=== PATIENT | female | born 1955 | race American Indian/Alaskan Native ===

== ENCOUNTER 2018-12-02 00:42 | Emergency (ER) | payer MEDICAID, OTHER ==
[2018-12-02] MEDS ORDERED: TENORMIN PO ONE (01:06)
--- NOTE | 2018-12-02 01:11 | Emergency Department Report ---
ED Medical Clearance HPI - General Chief complaint: Medical Clearance Stated complaint: MED CLEARANCE Time Seen by Provider: 12/02/18 01:02 Source: patient, police Mode of arrival: Ambulatory Limitations: No Limitations - History of Present Illness Initial comments: Patient is a 63-year-old -[place] female who presents requesting medical clearance status post [facility] Police Department patient denies complaints at this time is no shortness of breath no nausea vomiting no diaphoresis no back pain no dizziness or lightheadedness patient does endorse she missed her medications today follows positive for HR: of 110, BP 159/92 patient does appear well and nontoxic nad. curent medications includ: metformin 100 mg po bid, atenolol 50 mg po bid, artovastatin 40mg po daily , and ASA 81 mg po daily , pcp , Dr Jonathan DELGADO Complaint: medical clearance request Onset/Timin -: hour(s) Reason for Medical Clearance: medical condition, other (htn, tachycardia chronic ) Place: home Alledged Intoxication: No (disease and newly) Compliant with Home Medications: No Traumatic Symptoms: denies traumatic injury Associated Symptoms: denies: chest pain, palpitations, diaphoresis, denies other symptoms, confusion, cough, nausea/vomiting, weakness Treatments Prior to Arrival: none Allergies/Adverse reactions: Allergies Allergy/AdvReac Type Severity Reaction Status Date / Time lisinopril Allergy Angioedema Verified 12/02/18 00:44 ED Review of Systems ROS: Stated complaint: MED CLEARANCE Other details as noted in HPI Constitutional: denies: chills, fever Eyes: denies: eye pain, eye discharge, vision change ENT: denies: ear pain, throat pain Respiratory: denies: cough, shortness of breath, wheezing Cardiovascular: denies: chest pain, palpitations, dyspnea on exertion, edema, syncope, paroxysmal nocturnal dyspnea Endocrine: no symptoms reported Gastrointestinal: denies: abdominal pain, nausea, vomiting, diarrhea Genitourinary: denies: urgency, dysuria, discharge Musculoskeletal: denies: back pain, joint swelling, arthralgia Skin: denies: rash, lesions Neurological: denies: headache, weakness, paresthesias Psychiatric: denies: anxiety, depression Hematological/Lymphatic: denies: easy bleeding, easy bruising ED Past Medical Hx - Past Medical History Previous Medical History?: Yes Hx Hypertension: Yes Hx Heart Attack/AMI: Yes (2 stents) Hx Diabetes: Yes Additional medical history: AFib, Anemia with 2 Blood transfusions - Surgical History Past Surgical History?: Yes Hx Coronary Stent: Yes (x 2) Additional Surgical History: Hemorrhoids - Social History Smoking Status: Current Every Day Smoker Substance Use Type: Alcohol ED Physical Exam - General Limitations: Other General appearance: alert, in no apparent distress - Head Head exam: Present: atraumatic, normocephalic - Eye Eye exam: Present: normal appearance, PERRL, EOMI Pupils: Present: normal accommodation - ENT ENT exam: Present: normal orophraynx, mucous membranes moist, TM's normal bilaterally, normal external ear exam - Neck Neck exam: Present: normal inspection, full ROM. Absent: tenderness, meningismus, lymphadenopathy, thyromegaly - Expanded Neck Exam Expanded Neck exam: Absent: tenderness, midline deformity, anterior neck swelling, thyroid mass, carotid bruit, tracheal deviation - Respiratory Respiratory exam: Present: normal lung sounds bilaterally. Absent: respiratory distress, wheezes, stridor, chest wall tenderness, prolonged expiratory - Cardiovascular Cardiovascular Exam: Present: regular rate, normal rhythm, normal heart sounds. Absent: systolic murmur, diastolic murmur, rubs, gallop, clicks, JVD ED Course Vital Signs 12/02/18 12/02/18 12/02/18 00:47 01:27 02:40 Temperature 98.5 F Pulse Rate 110 H 110 H 78 Respiratory 20 16 18 Rate Blood Pressure 159/92 162/93 Blood Pressure 162/93 141/77 [Right] O2 Sat by Pulse 97 98 98 Oximetry ED Medical Decision Making - Lab Data Result diagrams: 12/02/18 01:16 12/02/18 01:16 Labs 12/02/18 12/02/18 01:16 01:16 WBC 6.2 RBC 4.70 Hgb 11.5 Hct 33.3 MCV 71 L MCH 24 L MCHC 35 H RDW 18.9 H Plt Count 210 Lymph % (Auto) 35.1 H [place] % (Auto) 7.1 Eos % (Auto) 0.8 Baso % (Auto) 1.3 Lymph # 2.2 [place] # 0.4 Eos # 0.1 Baso # 0.1 Seg Neutrophils % 55.7 Seg Neutrophils # 3.5 Sodium 142 Potassium 4.4 Chloride 103.5 Carbon Dioxide 22 Anion Gap 21 BUN 6 L Creatinine 0.6 L Estimated GFR > 60 BUN/Creatinine Ratio 10 Glucose 177 H Calcium 9.7 Total Bilirubin 0.20 AST 23 ALT 20 Alkaline Phosphatase 74 Troponin T < 0.010 Total Protein 7.9 Albumin 4.4 Albumin/Globulin Ratio 1.3 Labs 12/02/18 12/02/18 12/02/18 01:16 01:16 02:53 WBC 6.2 RBC 4.70 Hgb 11.5 Hct 33.3 MCV 71 L MCH 24 L MCHC 35 H RDW 18.9 H Plt Count 210 Lymph % (Auto) 35.1 H [place] % (Auto) 7.1 Eos % (Auto) 0.8 Baso % (Auto) 1.3 Lymph # 2.2 [place] # 0.4 Eos # 0.1 Baso # 0.1 Seg Neutrophils % 55.7 Seg Neutrophils # 3.5 Sodium 142 Potassium 4.4 Chloride 103.5 Carbon Dioxide 22 Anion Gap 21 BUN 6 L Creatinine 0.6 L Estimated GFR > 60 BUN/Creatinine Ratio 10 Glucose 177 H Calcium 9.7 Total Bilirubin 0.20 AST 23 ALT 20 Alkaline Phosphatase 74 Troponin T < 0.010 < 0.010 Total Protein 7.9 Albumin 4.4 Albumin/Globulin Ratio 1.3 - EKG Data EKG shows normal: sinus rhythm, axis, intervals, QRS complexes, ST-T waves Rate: normal - EKG Data When compared to previous EKG there are: no significant change Interpretation: no acute changes, normal EKG, other EKG interp by ed attending NSTach with right BBB , No ST Elevated [place] , 12/02/18 01:57 - Radiology Data Radiology results: report reviewed, image reviewed Ordering Physician: TRISH MARTIN NP Date of Service: 12/02/18 Procedure(s): XR chest routine 2V Accession Number(s): [id number] cc: TRISH MARTIN NP Fluoro Time In Minutes: PROCEDURE: XR CHEST ROUTINE 2V TECHNIQUE: PA and lateral chest radiographs were obtained. HISTORY: sob COMPARISONS: None. FINDINGS: Heart: Normal. Mediastinum/Vessels: Normal. Lungs/Pleural space: Normal. Bony thorax: No acute osseous abnormality. IMPRESSION: Normal examination. This document is electronically signed by Hayde Aguilera DO., December 02 2018 01:35:10 AM ET Transcribed By: [facility] Dictated By: HAYDE AGUILERA MD Electronically Authenticated By: HAYDE AGUILERA MD Signed Date/Time: 12/02/18136 DD/ 6 TD/TT: 12/02/18124 - Medical Decision Making EKG: Sinus Tach 106, No ST Elevated [place], RBBB , no change from previous ekgs, interp by ed attending CXR: normal no infiltrates no opacitie, labs: normal , Trop: < 0.01 Heart Score is 1 for hx , there is no cp no sob no diaphoresis no n/v no dizziness no lightheadedness plan : dc for medical clearance and release to [facility] Department , pt is currently a/o x 3 ambulatory with stready gait and nad, pt dc'd in stable condition. ED Disposition Clinical Impression: Medical clearance for incarceration Disposition: DC-01 TO HOME OR SELFCARE Is pt being admited?: No Does the pt Need Aspirin: No Condition: Stable Instructions: Stress (ED) Additional Instructions: follow up with Dr Castillo in 2-3 days Referrals: DALI REEDKENOSHA MD AVI [Referring] - 3-5 Days Forms: Work/School Release Form(ED) Time of Disposition: 04:18
[2018-12-02 01:28] LABS: Basophils # (Auto) 0.1 K/mm3 (0.0-0.1); Basophils % (Auto) 1.3 % (0.0-1.8); Eosinophils # (Auto) 0.1 K/mm3 (0.0-0.4); Eosinophils % (Auto) 0.8 % (0.0-4.3); Hematocrit 33.3 % (30.3-42.9); Hemoglobin 11.5 gm/dl (10.1-14.3); Lymphocytes # (Auto) 2.2 K/mm3 (1.2-5.4); Lymphocytes % (Auto) 35.1 % (13.4-35.0); Mean Corpuscular HGB Conc 35 % (30-34); Mean Corpuscular Volume 71 fl (79-97); Monocytes # (Auto) 0.4 K/mm3 (0.0-0.8); Monocytes % (Auto) 7.1 % (0.0-7.3); Platelet Count 210 K/mm3 (140-440); Red Cell Distribution Width 18.9 % (13.2-15.2)
--- NOTE | 2018-12-02 01:37 | XRay Report ---
PROCEDURE: XR CHEST ROUTINE 2V TECHNIQUE: PA and lateral chest radiographs were obtained. HISTORY: sob COMPARISONS: None. FINDINGS: Heart: Normal. Mediastinum/Vessels: Normal. Lungs/Pleural space: Normal. Bony thorax: No acute osseous abnormality. IMPRESSION: Normal examination. This document is electronically signed by Hayde Aguilera DO., December 02 2018 01:35:10 AM ET
[2018-12-02 01:48] LABS: Alanine Aminotransferase 20 units/L (7-56); Albumin 4.4 g/dL (3.9-5); BUN/Creatinine Ratio 10; Blood Urea Nitrogen 6 mg/dL (7-17); Calcium 9.7 mg/dL (8.4-10.2); Hemolysis Index 0
[2018-12-02 03:16] VITALS: BP 141/77
== END 2018-12-02 04:33 | disposition home or self-care (01) ==
LOC: ED 00:42 → EEVIPCON 00:42 → ED 04:33
DX: Z00.8 Encounter for other general examination (principal); Z88.8 Allergy status to other drugs, medicaments and biological substances; I10 Essential (primary) hypertension; I25.2 Old myocardial infarction; E11.9 Type 2 diabetes mellitus without complications; F17.200 Nicotine dependence, unspecified, uncomplicated; Z95.5 Presence of coronary angioplasty implant and graft
CPT/HCPCS: 36415; 71046; 80053; 84484; 85025; 93005; 93010